=== PATIENT | female | born 1975 | race Two or more races ===

== ENCOUNTER 2018-03-27 10:48 | Emergency (ER) | payer OTHER ==
[2018-03-27 11:27] LABS: ADD MAN DIFF? NO
[2018-03-27 11:32] LABS: ADD UMIC YES; UR ASCORBIC ACID NEGATIVE (NEGATIVE); UR BILIRUBIN (Dip) NEGATIVE (NEGATIVE); UR BLOOD (Dip) 2+ mg/dL (NEGATIVE); UR CLARITY CLEAR (CLEAR); UR COLOR COLORLESS (YELLOW); UR GLUCOSE (Dip) NEGATIVE (NEGATIVE); UR KETONES (Dip) NEGATIVE (NEGATIVE); UR LEUKOCYTE ESTERASE (Dip) NEGATIVE Leu/ul (NEGATIVE); UR NITRITE (Dip) NEGATIVE (NEGATIVE); UR RBC 1 /HPF (0-5); UR SPECIFIC GRAVITY (Dip) 1.002 (1.003-1.030); UR TOTAL PROTEIN (Dip) NEGATIVE (NEGATIVE); UR UROBILINOGEN (Dip) NEGATIVE (NEGATIVE); UR WBC 0 /HPF (0-5)
[2018-03-27 11:34] LABS: BASOPHILS % 0.2 % (0.0-2.0); EOSINOPHILS # 0.4 10^3/ul (0.0-0.5); EOSINOPHILS % 4.1 % (0.0-7.0); HEMATOCRIT 37.4 % (37.0-47.0); HEMOGLOBIN 12.4 g/dl (12.0-16.0); LYMPHOCYTES # 2.4 10^3/ul (0.8-2.9); LYMPHOCYTES % 26.2 % (15.0-51.0); MEAN CORPUSCULAR HEMOGLOBIN 26.7 pg (29.0-33.0); MEAN CORPUSCULAR HGB CONC 33.2 g/dl (32.0-37.0); MEAN CORPUSCULAR VOLUME 80.4 fl (82.0-101.0); MEAN PLATELET VOLUME 8.7 fl (7.4-10.4); MONOCYTE # 0.8 10^3/ul (0.3-0.9); MONOCYTES % 8.5 % (0.0-11.0); NEUTROPHIL # 5.7 10^3/ul (1.6-7.5); NEUTROPHILS % 60.7 % (39.0-77.0); PLATELET COUNT 327 10^3/UL (140-415); RED BLOOD COUNT 4.65 10^6/ul (4.20-5.40); RED CELL DISTRIBUTION WIDTH 13.2 % (11.5-14.5)
[2018-03-27 11:34] LABS: WHITE BLOOD COUNT 9.3 10^3/ul (4.8-10.8)
== END 2018-03-27 12:55 | disposition home or self-care (01) ==
LOC: FTE 10:48
DX: O20.9 Hemorrhage in early pregnancy, unspecified (principal); R10.2 Pelvic and perineal pain; Z3A.11 11 weeks gestation of pregnancy
CPT/HCPCS: 36415; 76801; 81001; 84702; 85025; 86900; 86901; 99284-25

== ENCOUNTER 2018-04-21 21:55 | Emergency (ER) | payer OTHER ==
[2018-04-21] MEDS: ACETAMINOPHEN 325 MG TAB PO (23:46)
[2018-04-22 00:05] LABS: ADD UMIC YES; UR ASCORBIC ACID NEGATIVE (NEGATIVE); UR BACTERIA FEW /HPF (NONE SEEN); UR BILIRUBIN (Dip) NEGATIVE (NEGATIVE); UR BLOOD (Dip) 3+ mg/dL (NEGATIVE); UR CLARITY CLEAR (CLEAR); UR COLOR STRAW (YELLOW); UR GLUCOSE (Dip) NEGATIVE (NEGATIVE); UR KETONES (Dip) TRACE mg/dL (NEGATIVE); UR LEUKOCYTE ESTERASE (Dip) NEGATIVE Leu/ul (NEGATIVE); UR NITRITE (Dip) NEGATIVE (NEGATIVE); UR RBC 6 /HPF (0-5); UR SPECIFIC GRAVITY (Dip) 1.002 (1.003-1.030); UR TOTAL PROTEIN (Dip) NEGATIVE (NEGATIVE); UR UROBILINOGEN (Dip) NEGATIVE (NEGATIVE); UR WBC 0 /HPF (0-5)
[2018-04-22 00:20] LABS: ADD MAN DIFF? NO
[2018-04-22 00:25] LABS: BASOPHILS % 0.2 % (0.0-2.0); EOSINOPHILS # 0.4 10^3/ul (0.0-0.5); EOSINOPHILS % 2.9 % (0.0-7.0); HEMATOCRIT 36.9 % (37.0-47.0); HEMOGLOBIN 12.3 g/dl (12.0-16.0); LYMPHOCYTES # 2.6 10^3/ul (0.8-2.9); LYMPHOCYTES % 21.4 % (15.0-51.0); MEAN CORPUSCULAR HEMOGLOBIN 26.9 pg (29.0-33.0); MEAN CORPUSCULAR HGB CONC 33.3 g/dl (32.0-37.0); MEAN CORPUSCULAR VOLUME 80.6 fl (82.0-101.0); MEAN PLATELET VOLUME 8.7 fl (7.4-10.4); MONOCYTE # 0.7 10^3/ul (0.3-0.9); MONOCYTES % 5.8 % (0.0-11.0); NEUTROPHIL # 8.3 10^3/ul (1.6-7.5); NEUTROPHILS % 69.1 % (39.0-77.0); PLATELET COUNT 341 10^3/UL (140-415); RED BLOOD COUNT 4.58 10^6/ul (4.20-5.40); RED CELL DISTRIBUTION WIDTH 13.4 % (11.5-14.5)
== END 2018-04-22 02:37 | disposition home or self-care (01) ==
LOC: FTE 04-22 02:37
DX: O20.9 Hemorrhage in early pregnancy, unspecified (principal); R10.2 Pelvic and perineal pain; Z3A.16 16 weeks gestation of pregnancy
CPT/HCPCS: 36415; 76801; 81001; 84702; 85025; 86900; 86901; 99284-25

== ENCOUNTER 2018-05-02 10:02 | Inpatient (IN) | payer OTHER | END 2018-05-02 11:45 | disposition home or self-care (01) | DRG 782 | LOC: PP1 10:02 | DX: O44.10 Complete placenta previa with hemorrhage, unspecified trimester (principal) ==

== ENCOUNTER 2018-09-18 11:48 | Outpatient (CLI) | payer OTHER ==
[2018-09-18] MEDS: LACTATED RINGER'S 1,000 ML IV* (15:10)
== END 2018-09-18 16:00 | disposition home or self-care (01) ==
LOC: OBT 11:48 → L-D 11:48 → OBT 16:00
DX: O24.419 Gestational diabetes mellitus in pregnancy, unspecified control (principal); O09.523 Supervision of elderly multigravida, third trimester; Z3A.36 36 weeks gestation of pregnancy
CPT/HCPCS: 76818

== ENCOUNTER 2018-09-26 00:23 | Inpatient (IN) | payer OTHER ==
[2018-09-26] MEDS ORDERED: MISOPROSTOL 200 MCG TAB PR ×3 (04:00→14:00)
[2018-09-26] MEDS ORDERED: METHYLERGONOVINE 0.2 MG INJ IM ×3 (04:00→14:00)
[2018-09-26] MEDS ORDERED: IBUPROFEN 600 MG TAB PO (04:00)
[2018-09-26] MEDS ORDERED: LIDOCAINE 1% (MPF) 30 ML INJ INJ (04:00)
[2018-09-26] MEDS ORDERED: OXYTOCIN 30 UNITS/LR 500 ML IV ×6 (04:00→14:00)
[2018-09-26] MEDS ORDERED: CARBOPROST 250 MCG INJ IM ×3 (04:00→14:00)
[2018-09-26] MEDS ORDERED: BUTORPHANOL 2 MG INJ IV (04:00)
[2018-09-26] MEDS: LACTATED RINGER'S 1,000 ML IV ×3 (04:11→18:02)
[2018-09-26 05:59] LABS: ADD MAN DIFF? NO
[2018-09-26 06:08] LABS: WHITE BLOOD COUNT 10.6 10^3/ul (4.8-10.8)
[2018-09-26 06:08] LABS: BASOPHILS % 0.3 % (0.0-2.0); EOSINOPHILS # 0.1 10^3/ul (0.0-0.5); EOSINOPHILS % 1.2 % (0.0-7.0); LYMPHOCYTES # 2.8 10^3/ul (0.8-2.9); LYMPHOCYTES % 26.8 % (15.0-51.0); MEAN CORPUSCULAR HEMOGLOBIN 26.7 pg (29.0-33.0); MEAN CORPUSCULAR HGB CONC 33.3 g/dl (32.0-37.0); MEAN CORPUSCULAR VOLUME 80.2 fl (82.0-101.0); MONOCYTE # 0.8 10^3/ul (0.3-0.9); MONOCYTES % 7.9 % (0.0-11.0); NEUTROPHIL # 6.7 10^3/ul (1.6-7.5); NEUTROPHILS % 63.1 % (39.0-77.0); PLATELET COUNT 294 10^3/UL (140-415); RED BLOOD COUNT 4.49 10^6/ul (4.20-5.40); RED CELL DISTRIBUTION WIDTH 15.5 % (11.5-14.5)
[2018-09-26 06:43] LABS: INR 0.87; PROTIME 11.9 Sec (11.9-14.9); PT RATIO 0.9
[2018-09-26 06:43] LABS: GLUCOSE 92 mg/dl (70-220)
[2018-09-26] MEDS ORDERED: EPHEDrine SULFATE 50 MG/5 ML SYG ×2 (07:00→11:26)
[2018-09-26 07:15] LABS: HEPATITIS B SURFACE ANTIGEN NEGATIVE (NEGATIVE)
[2018-09-26] MEDS: LEVOTHYROXINE 100 MCG TAB PO (08:04)
[2018-09-26] MEDS: DEXTROSE 5%-LR 1,000 ML IV (08:10)
[2018-09-26] MEDS ORDERED: CEFAZOLIN 2 GM/50 ML (PMX) 50 ML IVPB ×2 (11:21→11:30)
[2018-09-26] MEDS ORDERED: CITRIC ACID/NA CITRATE 30 ML CUP (11:21)
[2018-09-26] MEDS: CITRIC ACID/NA CITRATE 30 ML CUP PO ×2 (11:24→11:30)
[2018-09-26] MEDS ORDERED: ONDANSETRON 4 MG INJ (11:26)
[2018-09-26] MEDS ORDERED: METOCLOPRAMIDE 10 MG INJ (11:26)
[2018-09-26] MEDS ORDERED: KETOROLAC 30 MG INJ (11:26)
[2018-09-26] MEDS ORDERED: morphine SULFATE/PF (10 MG/10 ML) INJ (11:26)
[2018-09-26] MEDS ORDERED: PHENYLephrine (100 MCG/ML) 5ML SYG ×2 (12:29→13:00)
[2018-09-26] MEDS ORDERED: FENTAnyl 50 MCG/ML VIAL (13:11)
[2018-09-26] MEDS: OXYTOCIN 30 UNITS/LR 500 ML IV ×2 (13:43→13:44)
[2018-09-26] MEDS ORDERED: NALOXONE (0.4 MG/ML) INJ IV (14:00)
[2018-09-26] MEDS ORDERED: ONDANSETRON 4 MG INJ IV (14:00)
[2018-09-26] MEDS ORDERED: morphine 2 MG INJ IV ×3 (14:00)
[2018-09-26] MEDS ORDERED: morphine (1 MG/ML) 10ML SYRINGE IV ×3 (14:00)
[2018-09-26] MEDS ORDERED: METHYLERGONOVINE 0.2 MG TAB PO (14:00)
[2018-09-26] MEDS ORDERED: HYDROCODONE/APAP (5/325) TAB PO ×2 (14:00)
[2018-09-26] MEDS ORDERED: DIPHENHYDRAMINE 50 MG INJ IV ×2 (14:00)
[2018-09-26] MEDS: CEFAZOLIN 2 GM/50 ML (PMX) 50 ML IVPB ×2 (14:00→16:13)
[2018-09-26] MEDS ORDERED: NA PHOSPHATE/BIPHOS 133 ML ENEMA PR (14:00)
[2018-09-26] MEDS ORDERED: LANOLIN 7 GM TUBE TOP (14:00)
[2018-09-26] MEDS ORDERED: IBUPROFEN 800 MG TAB PO (14:00)
[2018-09-26] MEDS: ONDANSETRON 4 MG INJ IV (17:58)
[2018-09-26 20:02] LABS: RAPID PLASMA REAGIN NONREACTIVE (NR)
[2018-09-26] MEDS: SENNA/DOCUSATE NA (8.6MG/50MG) TAB PO (21:00)
[2018-09-27] MEDS: CEFAZOLIN 2 GM/50 ML (PMX) 50 ML IVPB ×2 (00:48→06:56)
[2018-09-27] MEDS: LACTATED RINGER'S 1,000 ML IV ×2 (02:16→10:00)
[2018-09-27] MEDS: LEVOTHYROXINE 100 MCG TAB PO (06:56)
[2018-09-27] MEDS: KETOROLAC 30 MG INJ IV (06:56)
[2018-09-27 08:49] LABS: ADD MAN DIFF? NO
[2018-09-27] MEDS: SENNA/DOCUSATE NA (8.6MG/50MG) TAB PO ×2 (08:50→21:54)
[2018-09-27 08:54] LABS: WHITE BLOOD COUNT 12.1 10^3/ul (4.8-10.8)
[2018-09-27 08:54] LABS: BASOPHILS % 0.2 % (0.0-2.0); EOSINOPHILS # 0.1 10^3/ul (0.0-0.5); EOSINOPHILS % 0.4 % (0.0-7.0); HEMATOCRIT 31.9 % (37.0-47.0); HEMOGLOBIN 10.8 g/dl (12.0-16.0); LYMPHOCYTES # 2.2 10^3/ul (0.8-2.9); LYMPHOCYTES % 18.5 % (15.0-51.0); MEAN CORPUSCULAR HEMOGLOBIN 27.1 pg (29.0-33.0); MEAN CORPUSCULAR HGB CONC 33.9 g/dl (32.0-37.0); MEAN CORPUSCULAR VOLUME 80.2 fl (82.0-101.0); MEAN PLATELET VOLUME 9.3 fl (7.4-10.4); MONOCYTES % 8.4 % (0.0-11.0); NEUTROPHIL # 8.7 10^3/ul (1.6-7.5); NEUTROPHILS % 71.8 % (39.0-77.0); PLATELET COUNT 251 10^3/UL (140-415); RED BLOOD COUNT 3.98 10^6/ul (4.20-5.40); RED CELL DISTRIBUTION WIDTH 15.2 % (11.5-14.5)
[2018-09-27] MEDS: IBUPROFEN 800 MG TAB PO ×2 (13:47→21:54)
[2018-09-27] MEDS ORDERED: IBUPROFEN 800 MG TAB PO ×2 (14:00→22:00)
[2018-09-28] MEDS: IBUPROFEN 800 MG TAB PO ×3 (05:33→21:52)
[2018-09-28] MEDS: LEVOTHYROXINE 100 MCG TAB PO (07:15)
[2018-09-28] MEDS: SENNA/DOCUSATE NA (8.6MG/50MG) TAB PO ×2 (08:47→21:52)
[2018-09-28] MEDS ORDERED: BISACODYL (EC) 5 MG TAB PO (13:30)
[2018-09-28] MEDS: BISACODYL (EC) 5 MG TAB PO (14:30)
[2018-09-29] MEDS: IBUPROFEN 800 MG TAB PO ×2 (05:45→14:47)
[2018-09-29] MEDS: LEVOTHYROXINE 100 MCG TAB PO (06:59)
[2018-09-29] MEDS ORDERED: DIPHTH/TET/ACEL PERTUSS (ADULT) 0.5 ML VIAL IM* (09:00)
[2018-09-29] MEDS ORDERED: MEASLES,MUMPS,RUBELLA VACCINE INJ SC* (09:00)
== END 2018-09-29 15:55 | disposition home or self-care (01) | DRG 788 ==
LOC: OBT 00:23 → L-D 00:24 → OBT 04:00 → L-D 04:00 → PP1 15:24
PROVIDERS: Obstetrics & Gynecology
PROC: 10D00Z1 Extraction of Products of Conception, Low, Open Approach (ICD-10-PCS; principal; 2018-09-26)
DX: O32.2XX0 Maternal care for transverse and oblique lie, not applicable or unspecified (principal); E03.9 Hypothyroidism, unspecified; O34.13 Maternal care for benign tumor of corpus uteri, third trimester; Z3A.37 37 weeks gestation of pregnancy; Z37.0 Single live birth; O69.81X0 Labor and delivery complicated by cord around neck, without compression, not applicable or unspecified; O24.410 Gestational diabetes mellitus in pregnancy, diet controlled; O99.283 Endocrine, nutritional and metabolic diseases complicating pregnancy, third trimester; Z33.3 Pregnant state, gestational carrier
CPT/HCPCS: 76815; 76818; 82947; 82962; 85025; 85610; 85730; 86592; 86850; 86900; 86901; 87340; 99464